=== PATIENT | female | born 1990 | race Two or more races ===

== ENCOUNTER 2016-09-22 19:06 | Emergency (ER) | payer OTHER ==
[~2016-09-22] VITALS: Ht 175.3 cm; Wt 74.8 kg
[2016-09-22] MEDS ORDERED: HYDROCODONE/APAP 5/325MG 1 EACH TABLET PO ONE (19:30)
[2016-09-22] MEDS ORDERED: IBUPROFEN 600 MG TABLET PO ONE ×2 (19:30→20:08)
[2016-09-22 19:41] LABS: BASOPHILS % (AUTO) 0.6 % (0.0-2.0); DIFF TOTAL % 100 %; EOSINOPHILS # (AUTO) 0.3 /CMM (0.0-0.7); EOSINOPHILS % (AUTO) 4.7 % (0.0-6.0); HEMATOCRIT 36 % (33-45); HEMOGLOBIN 12.3 g/dL (11.5-14.8); LYMPHOCYTES # (AUTO) 2.4 /CMM (0.8-4.8); LYMPHOCYTES % (AUTO) 39.4 % (20.0-44.0); MEAN CORPUSCULAR HEMOGLOBIN 32 PG (26.0-33.0); MEAN CORPUSCULAR HGB CONC 34 g/dl (31.0-36.0); MEAN CORPUSCULAR VOLUME 93 fL (82-100); MONOCYTES # (AUTO) 0.8 /CMM (0.1-1.30); MONOCYTES % (AUTO) 13.1 % (2.0-12.0); NEUTROPHILS # (AUTO) 2.7 /CMM (1.8-8.9); NEUTROPHILS % (AUTO) 42.2 % (43.0-81.0); PLATELET COUNT (AUTO) 268 /CMM (150-450); WHITE BLOOD COUNT (AUTO) 6.2 K/uL (4.3-11.0)
[2016-09-22 19:45] LABS: PREGNANCY TEST URINE QUAL NEGATIVE (NEGATIVE)
[2016-09-22 19:47] LABS: ADD UA MICROSCOPIC NO; KETONES,URINE Negative (NEGATIVE); LEUKOCYTE ESTERASE ,URINE Negative (NEGATIVE)
[2016-09-22] MEDS ORDERED: HYDROCODONE/APAP 5/325MG 1 EACH TABLET ONE (20:08)
[2016-09-22 20:11] LABS: ALBUMIN 4.2 g/dL (3.4-5.0); BILIRUBIN,TOTAL 0.2 mg/dL (0.2-1.0); CALCIUM, SERUM 9.5 mg/dL (8.5-10.1); TOTAL PROTEIN, SERUM 7.9 g/dL (6.4-8.2)
[2016-09-22 20:16] LABS: INDIRECT BILIRUBIN 0.2 mg/dL (0.0-1.1)
[2016-09-22 21:07] LABS: POTASSIUM 4.1 mmol/L (3.5-5.1)
[2016-09-22 22:18] VITALS: BP 125/72
== END 2016-09-22 22:19 | disposition home or self-care (01) ==
LOC: ER 19:08
DX: D25.9 Leiomyoma of uterus, unspecified (principal); Z87.442 Personal history of urinary calculi; J45.909 Unspecified asthma, uncomplicated
CPT/HCPCS: 36415; 71010; 76770; 76856; 80048; 80076; 81001; 84703; 85025; 87491; 87591; 93005; 99285; A4606; Z7610; 81000-TC